=== PATIENT | female | born 1935 | race Caucasian/White ===

== ENCOUNTER 2017-06-09 08:26 | Outpatient (CLI) | payer MEDICARE, BC ==
[2017-06-09 11:21] LABS: ALT (SGPT) 20 U/L (8-55); AST (SGOT) 20 U/L (5-34); Alkaline Phosphatase 92 U/L (40-150); Anion Gap 13 mmol/L (10-20); BUN (Urea Nitrogen) 16 mg/dL (9.8-20.1); Bilirubin, Total 0.4 mg/dL (0.2-1.2); Calc. Creatinine Clearance 0 mL/min (70-130); Calcium 10.3 mg/dL (7.8-10.44); Carbon Dioxide 24 mmol/L (23-31); Chloride 105 mmol/L (98-107); Estimated GFR-MDRD 63; Protein, Total 7.2 g/dL (6.0-8.3)
[2017-06-09 11:25] LABS: Hematocrit 43.8 % (36.0-47.0); Mean Platelet Volume 8.4 fL (7.4-10.4); Red Blood Cell (RBC) Count 4.57 mill/uL (4.20-5.40); White Blood Cell (WBC) Count 7.7 thou/uL (4.8-10.8)
[2017-06-09 11:26] LABS: PTT 33.8 SEC (22.9-36.1); Prothrombin Time 17.1 SEC (12.0-14.7)
--- NOTE | 2017-06-09 12:31 | RAD ---
TWO VIEW CHEST: CLINICAL HISTORY: Preprocedural radiograph. COMPARISON: 01/18/2013 FINDINGS: There is a stable high density nodule in the right lung apex and at the left lung base, indicating gr anulomatous calcifications. The lungs are hyperinflated. The cardiac silhouette is mildly enlarged. There is vascular calcification and osseous degenerative change. IMPRESSION: Stable chest. POS: [facility]
--- NOTE | 2017-06-25 13:26 | EKG ---
Test Reason : Blood Pressure : / mmHG Vent. Rate : 081 BPM Atrial Rate : 081 BPM P-R Int : 144 ms QRS Dur : 104 ms QT Int : 394 ms P-R-T Axes : 070 -30 038 degrees QTc Int : 457 ms Sinus rhythm with occasional Premature ventricular complexes Left axis deviation Cannot rule out Anterior infarct (cited on or before 14-DEC-2012) Abnormal ECG Confirmed by JASON CARRASCO, MALENA ([id number]) on 06/25/2017 1:26:04 PM Referred By: JASON Confirmed By:MALENA GOMEZ MD
== END 2017-06-09 08:27 | disposition home or self-care (01) ==
LOC: LABBT 08:26
PROVIDERS: ATTEND Internal Medicine Cardiovascular Disease
DX: Z01.818 Encounter for other preprocedural examination (principal); R93.1 Abnormal findings on diagnostic imaging of heart and coronary circulation
CPT/HCPCS: 71020; 80053; 85027; 85610; 85730; 93005; 93010

== ENCOUNTER → 2017-06-15 | Day surgery (SDC) | payer MEDICARE, BC ==
[2017-06-09 09:12] VITALS: BMI 31.0
[~2017-06-15] MED LIST: Acetaminophen/Codeine 30-300mg Tablet ONE; Acetaminophen/Codeine 30-300mg Tablet PO PRN; DC ENOXAPARIN NIGHT BEFORE CATH FS SCH; Diazepam 5 MG TAB ONE; Diazepam 5 MG TAB PO SCH; Fentanyl 100 MCG/2 ML VIAL ONE; HOLD HYPOGLYCEMIC MEDS AM OF CATH FS SCH; Heparin 10,000 UNITS/1 ML VIAL ONE; Heparin 1000 UNIT/NS 500ML(OR) 1,000 ML ONE; Heparin 1000 UNIT/NS 500ML(OR) 500 ML ONE; Iopamidol 370 76% 100 ML VIAL ONE; Midazolam HCl 2 mg/2 ml Vial ONE; Nitroglycerin 0.4 MG TAB (25 Tab Bottle) SL PRN; Nitroglycerin 100MG/250ML BOT 250 ML ONE; Sodium Chloride 0.9% 1,000 ML IV SCH; Verapamil 5 MG/2 ML VIAL ONE; traMADol HCl 50 MG TAB ONE; traMADol HCl 50 MG TAB PO PRN
== END ==
LOC: CCL 05:39
PROVIDERS: ATTEND Internal Medicine Cardiovascular Disease
DX: R07.89 Other chest pain (principal); I10 Essential (primary) hypertension; E78.00 Pure hypercholesterolemia, unspecified; Z82.49 Family history of ischemic heart disease and other diseases of the circulatory system; Z79.01 Long term (current) use of anticoagulants; Z79.52 Long term (current) use of systemic steroids; Z79.899 Other long term (current) drug therapy; Z88.2 Allergy status to sulfonamides; Z91.041 Radiographic dye allergy status; Z90.710 Acquired absence of both cervix and uterus; Z90.49 Acquired absence of other specified parts of digestive tract; Z98.890 Other specified postprocedural states
CPT/HCPCS: 76942; 85347 ×2; 93458; C1769; 99152; J1644; J2250; J3010

== ENCOUNTER 2017-09-01 12:16 | Outpatient (CLI) | payer MEDICARE, BC | END 2017-09-01 12:17 | disposition home or self-care (01) | LOC: BICMAMMO 12:16 | PROVIDERS: ATTEND Internal Medicine | DX: Z12.31 Encounter for screening mammogram for malignant neoplasm of breast (principal); R92.1 Mammographic calcification found on diagnostic imaging of breast | CPT/HCPCS: 77063; 77067 ==

== ENCOUNTER 2017-11-06 08:19 | Emergency (ER) | payer MEDICARE, BC ==
[2017-11-06] MEDS ORDERED: Fluorescein Opthalmic Strip ONE (09:27)
[2017-11-06] MEDS ORDERED: Proparacaine 0.5% Opth 15 ML BOT ONE (09:27)
== END 2017-11-06 11:05 | disposition home or self-care (01) ==
LOC: ERS 08:19
DX: H20.9 Unspecified iridocyclitis (principal); I10 Essential (primary) hypertension; Z86.718 Personal history of other venous thrombosis and embolism; K21.9 Gastro-esophageal reflux disease without esophagitis; Z86.711 Personal history of pulmonary embolism; Z79.899 Other long term (current) drug therapy; Z79.01 Long term (current) use of anticoagulants
CPT/HCPCS: 99283

== ENCOUNTER 2018-07-19 14:52 | Outpatient (CLI) | payer MEDICARE, BC ==
--- NOTE | 2018-07-19 17:11 | MRI ---
BRAIN MRI NONCONTRAST: Date: 07/19/18 INDICATION: Coarse tremors. FINDINGS: Ventricular system is age-appropriate in size. There is no acute territorial infarction, mass effect, or midline shift. There is mild to moderate chronic ischemic disease involving the cerebral white ma tter. Global atrophy is present. There is bilateral mastoid fluid, left greater than right. The nativ e intraocular lenses are absent. Visualized skull base flow-voids are patent. No hemorrhagic suscepti bility is seen within the brain parenchyma. IMPRESSION: 1. No acute intracranial abnormalities. 2. Mild to moderate chronic ischemic disease and global atrophy. 3. Bilateral mastoid fluid, left greater than right. Correlate clinically. POS: [facility]
== END 2018-07-19 14:53 | disposition home or self-care (01) ==
LOC: BICMRI 14:52
PROVIDERS: ATTEND Family Medicine
DX: G25.2 Other specified forms of tremor (principal); I67.82 Cerebral ischemia
CPT/HCPCS: 70551

== ENCOUNTER 2018-11-09 10:13 | Outpatient (CLI) | payer MEDICARE, BC ==
--- NOTE | 2018-11-09 11:08 | MMO ---
Bilateral MAMMO Bilat Screen [facility]. CLINICAL HISTORY: Patient is 83 years old and is seen for screening. The patient has no family history of breast cancer. The patient has no personal history of cancer. VIEWS: The views performed were: bilateral craniocaudal with tomosynthesis and bilateral mediolateral oblique with tomosynthesis. FILMS COMPARED: The present examination has been compared to prior imaging studies performed at [facility] on 02/06/2013, 02/07/2014, 02/12/2015, 02/16/2016 and 09/01/2017. MAMMOGRAM FINDINGS: There are scattered fibroglandular densities. There are stable benign appearing calcifications seen in both breasts. There are no suspicious masses, suspicious calcifications, or new areas of architectural distortion. IMPRESSION: THERE IS NO MAMMOGRAPHIC EVIDENCE OF MALIGNANCY. A ROUTINE FOLLOW-UP MAMMOGRAM IN 1 YEAR IS RECOMMENDED. THE RESULTS OF THIS EXAM WERE SENT TO THE PATIENT. ACR BI-RADS Category 2 - Benign finding MAMMOGRAPHY NOTE: 1. A negative mammogram report should not delay a biopsy if a dominant of clinically suspicious mass is present. 2. Approximately 10% to 15% of breast cancers are not detected by mammography. 3. Adenosis and dense breasts may obscure an underlying neoplasm.
== END 2018-11-09 10:14 | disposition home or self-care (01) ==
LOC: BICMAMMO 10:13
PROVIDERS: ATTEND Family Medicine
DX: Z12.31 Encounter for screening mammogram for malignant neoplasm of breast (principal)
CPT/HCPCS: 77063; 77067

== ENCOUNTER 2020-03-26 15:14 | Outpatient (CLI) | payer MEDICARE, BC ==
--- NOTE | 2020-03-26 16:15 | RAD ---
EXAM: Chest PA and lateral: HISTORY: Postural kyphosis. Patient fell a couple months ago. COMPARISON: 06/09/2017 FINDINGS: Heart: Normal cardiac silhouette Aorta: Unremarkable Pulmonary vessels: Normal Costophrenic angles: Costophrenic angles are clear. Lungs: Hyperinflation with chronic changes. Stable calcified granuloma in the right upper lobe. Pneumothorax: No pneumothorax Osseous structures: No acute osseous abnormalities. Stable kyphosis. IMPRESSION: No acute cardiopulmonary process.
--- NOTE | 2020-03-26 16:53 | MMO ---
Bilateral MAMMO Bilat Screen [facility]. CLINICAL HISTORY: Patient is 84 years old and is seen for screening. The patient has no family history of breast cancer. The patient has no personal history of cancer. VIEWS: The views performed were: bilateral craniocaudal with tomosynthesis and bilateral mediolateral oblique with tomosynthesis. FILMS COMPARED: The present examination has been compared to prior imaging studies performed at [facility] on 02/12/2015, 02/16/2016, 09/01/2017 and 11/09/2018. This study has been interpreted with the assistance of computer-aided detection. MAMMOGRAM FINDINGS: There are scattered fibroglandular densities. There are no suspicious masses, suspicious calcifications, or new areas of architectural distortion. IMPRESSION: THERE IS NO MAMMOGRAPHIC EVIDENCE OF MALIGNANCY. A ROUTINE FOLLOW-UP MAMMOGRAM IN 1 YEAR IS RECOMMENDED. THE RESULTS OF THIS EXAM WERE SENT TO THE PATIENT. ACR BI-RADS Category 1 - Negative MAMMOGRAPHY NOTE: 1. A negative mammogram report should not delay a biopsy if a dominant of clinically suspicious mass is present. 2. Approximately 10% to 15% of breast cancers are not detected by mammography. 3. Adenosis and dense breasts may obscure an underlying neoplasm. Reported by: MARY ROME MD Electonically Signed: [id number]
--- NOTE | 2020-03-26 17:50 | BD ---
Exam: DEXA Bone Density 03/26/20 INDICATION: Age related osteoporosis. COMPARISON: None. FINDINGS: Lumbar Spine: BMD (g/cm2) T-SCORE Z-SCORE L1 0.819 -1.6 0.9 L2 0.902 -1.1 1.6 L3 1.130 0.4 3.3 L4 1.045 -0.1 2.9 L1-L4 0.983 -0.6 2.2 Left Femoral Neck: 0.673 -1.6 0.9 Left Total Femur: 0.785 -1.3 1.0 The WHO fracture risk assessment tool estimates a ten year fracture risk for this patient for a major osteoporotic fracture as 24% and for hip fracture 6.3%. Impression: Based on WHO criteria, the patient is osteopenic. The patient is at moderate risk for fracture. POS: [facility]
== END 2020-03-26 15:15 | disposition home or self-care (01) ==
LOC: BICMAMMO 15:14
PROVIDERS: ATTEND Family Medicine
DX: Z12.31 Encounter for screening mammogram for malignant neoplasm of breast (principal); M81.0 Age-related osteoporosis without current pathological fracture; M40.04 Postural kyphosis, thoracic region; M85.89 Other specified disorders of bone density and structure, multiple sites
CPT/HCPCS: 71046; 77063; 77067; 77080

== ENCOUNTER 2020-08-19 17:22 | Outpatient (CLI) | payer MEDICARE, BC ==
[2020-08-20 05:21] LABS: SARS-CoV-2 PCR by NAA Not Detected (NotDetected)
== END 2020-08-19 17:23 | disposition home or self-care (01) ==
LOC: LABBT 17:22
PROVIDERS: ATTEND Specialist
DX: Z01.818 Encounter for other preprocedural examination (principal); Z01.812 Encounter for preprocedural laboratory examination; L92.9 Granulomatous disorder of the skin and subcutaneous tissue, unspecified; Z20.822 Contact with and (suspected) exposure to COVID-19
CPT/HCPCS: U0003; U0005; 87635

== ENCOUNTER 2020-08-21 06:33 | Day surgery (SDC) | payer MEDICARE, BC ==
[2020-08-12 16:10] VITALS: BMI 32.5
[2020-08-21 08:02] LABS: Hemoglobin 13.8 g/dL (12.0-16.0)
[2020-08-21 08:15] LABS: Anion Gap 11 mmol/L (10-20); BUN (Urea Nitrogen) 19 mg/dL (9.8-20.1); Calc. Creatinine Clearance 53 mL/min (70-130); Calcium 9.2 mg/dL (7.8-10.44); Carbon Dioxide 28 mmol/L (23-31); Chloride 106 mmol/L (98-107); Glucose 105 mg/dL (83-110); Potassium 4.4 mmol/L (3.5-5.1); Sodium 141 mmol/L (136-145)
[2020-08-21] MEDS ORDERED: Ciprofloxacin 0.2% Otic (0.25ML CONTAINER) ONE (09:16)
[2020-08-21] MEDS ORDERED: Fentanyl 100 MCG/2 ML VIAL ONE (10:03)
[2020-08-21] MEDS ORDERED: PROPOFOL 20 ML ONE (10:43)
[2020-08-21] MEDS ORDERED: Ondansetron PF 4 MG/2 ML Vial ONE (10:43)
--- NOTE | 2020-08-21 11:29 | OP ---
DATE OF PROCEDURE: 08/21/2020 PREOPERATIVE DIAGNOSES: 1. Retained pressure equalization tubes. 2. Chronic otitis media with otorrhea. POSTOPERATIVE DIAGNOSES: 1. Retained pressure equalization tubes. 2. Chronic otitis media with otorrhea. PROCEDURE PERFORMED: Removal of retained tubes with paper patch tympanoplasty. DESCRIPTION OF PROCEDURE: After consent was obtained, the patient was identified and brought to the operating room and placed on the operating table in supine position. General endotracheal anesthesia was obtained. The patient was positioned in surgery for mask anesthesia. The external canals were cleared of obstructive cerumen and the eardrums were visualized and there was bloody granulation tissue which was removed, under which there was a retained tube. The tube was removed and topical Andrea-Synephrine was placed to facilitate vasoconstriction. We then were able to place a paper patch over the defect and turned our attention to the contralateral side. Findings were encountered and similar technique was performed. The patient was then awakened, extubated, and taken to recovery room in a stable condition prior to discharge home. Job ID: [id number]
--- NOTE | 2020-08-21 21:03 | EKG ---
Test Reason : PREOP Blood Pressure : / mmHG Vent. Rate : 076 BPM Atrial Rate : 076 BPM P-R Int : 154 ms QRS Dur : 108 ms QT Int : 396 ms P-R-T Axes : 080 -30 067 degrees QTc Int : 445 ms Normal sinus rhythm Left axis deviation Abnormal ECG Confirmed by Sosa LAURENT ([id number]) on 08/21/2020 9:03:27 PM Referred By: KANWAL Confirmed By:Sosa LAURENT
== END 2020-08-21 11:30 | disposition home or self-care (01) ==
LOC: SDC 06:33
PROVIDERS: ATTEND Specialist
PROC: 09U87JZ Supplement Left Tympanic Membrane with Synthetic Substitute, Via Natural or Artificial Opening (ICD-10-PCS; principal; 2020-08-21)
PROC: 09U77JZ Supplement Right Tympanic Membrane with Synthetic Substitute, Via Natural or Artificial Opening (ICD-10-PCS; 2020-08-21)
PROC: 09P870Z Removal of Drainage Device from Left Tympanic Membrane, Via Natural or Artificial Opening (ICD-10-PCS; 2020-08-21)
PROC: 09P770Z Removal of Drainage Device from Right Tympanic Membrane, Via Natural or Artificial Opening (ICD-10-PCS; 2020-08-21)
DX: H66.93 Otitis media, unspecified, bilateral (principal); T16.1XXA Foreign body in right ear, initial encounter; T16.2XXA Foreign body in left ear, initial encounter; H71.93 Unspecified cholesteatoma, bilateral; I10 Essential (primary) hypertension; Z86.711 Personal history of pulmonary embolism; Z79.01 Long term (current) use of anticoagulants; Z79.899 Other long term (current) drug therapy; Z88.2 Allergy status to sulfonamides; Z88.6 Allergy status to analgesic agent; Z91.041 Radiographic dye allergy status
CPT/HCPCS: 80048; 85014; 85018; 93005; 93010; J2405; J2704; J3010

== ENCOUNTER 2021-02-01 11:30 | Inpatient (IN) | payer MEDICARE, BC ==
[2021-02-01] MEDS ORDERED: Morphine 4 MG/ML VIAL ONE (12:36)
[2021-02-01] MEDS ORDERED: Ondansetron PF 4 MG/2 ML Vial ONE (12:36)
[2021-02-01 13:29] LABS: #Eosinphils 0.2 thou/uL (0.0-0.7); #Lymphocytes 1.4 thou/uL (1.20-3.40); #Monocytes 0.4 thou/uL (0.11-0.59); #Neutrophils 6.6 thou/uL (1.40-6.50); %Basophils 0.3 % (0.0-1.0); %Eosinophils 2.1 % (0.0-10.0); %Lymphocytes 16.2 % (21.0-51.0); %Monocytes 4.1 % (0.0-10.0); %Neutrophils 77.3 % (42.0-75.0); Mean Corpuscular HGB CONC 33.3 g/dL (32.0-36.0); Mean Corpuscular Hemoglobin 32.1 pg (27.0-31.0); Mean Corpuscular Volume 96.4 fL (78.0-98.0); Mean Platelet Volume 8.1 fL (7.4-10.4); Platelet Count 246 thou/uL (130-400); Red Blood Cell (RBC) Count 4.37 mill/uL (4.20-5.40); White Blood Cell (WBC) Count 8.6 thou/uL (4.8-10.8)
[2021-02-01] MEDS ORDERED: hydrALAZINE 20 MG/ML VIAL SLOW IVP PRN (13:29)
[2021-02-01] MEDS ORDERED: Ondansetron ODT 4 MG TAB PO PRN (13:29)
[2021-02-01] MEDS ORDERED: Dextrose 5% in Water 1,000 ML IV PRN (13:29)
[2021-02-01] MEDS ORDERED: Morphine 2 MG/ML VIAL SLOW IVP PRN (13:29)
[2021-02-01] MEDS ORDERED: Dextrose 50% Abboject 50 ML SYRINGE SLOW IVP PRN (13:29)
[2021-02-01] MEDS ORDERED: Cyclobenzaprine 10 MG TAB PO PRN (13:34)
[2021-02-01] MEDS ORDERED: traMADol HCl 50 MG TAB PO PRN (13:34)
[2021-02-01] MEDS ORDERED: CEFAZOLIN 1 GM VIAL ONE (13:45)
[2021-02-01 14:02] LABS: INR-International Normal Ratio 1.6; PTT 36.3 sec (22.9-36.1); Prothrombin Time 19.3 sec (12.0-14.7)
[2021-02-01 14:05] LABS: ALT (SGPT) 15 U/L (8-55); AST (SGOT) 19 U/L (5-34); Albumin 4.2 g/dL (3.4-4.8); Alkaline Phosphatase 94 U/L (40-110); Anion Gap 15 mmol/L (10-20); BUN (Urea Nitrogen) 19 mg/dL (9.8-20.1); Bilirubin, Total 0.3 mg/dL (0.2-1.2); Calc. Creatinine Clearance 0 mL/min (70-130); Calcium 9.5 mg/dL (7.8-10.44); Carbon Dioxide 24 mmol/L (23-31); Chloride 105 mmol/L (98-107); Globulin 3.1 g/dL (2.4-3.5); Glucose 135 mg/dL (83-110); Potassium 4.5 mmol/L (3.5-5.1); Protein, Total 7.3 g/dL (5.8-8.1); Sodium 139 mmol/L (136-145)
[2021-02-01 14:11] LABS: Phosphorus 3.6 mg/dL (2.3-4.7)
[2021-02-01] MEDS ORDERED: Ibuprofen 800 MG TAB PO PRN (14:22)
[2021-02-01 16:33] VITALS: BMI 32.5
[2021-02-01] MEDS: Gabapentin 300 MG CAP PO SCH ×2 (17:46→21:01)
[2021-02-01] MEDS: traMADol HCl 50 MG TAB PO SCH (17:51)
[2021-02-01] MEDS: Senokot S 8.6-50 MG TAB PO SCH (21:01)
[2021-02-01] MEDS: Famotidine 20 MG TAB PO SCH (21:02)
[2021-02-01] MEDS ORDERED: Sodium Chloride 0.9% 1,000 ML IV SCH (23:55)
[2021-02-02] MEDS: traMADol HCl 50 MG TAB PO SCH ×5 (00:24→23:56)
[2021-02-02] MEDS: Ondansetron PF 4 MG/2 ML Vial IVP PRN ×2 (03:48→16:10)
[2021-02-02 05:17] LABS: #Eosinphils 0.1 thou/uL (0.0-0.7); #Lymphocytes 1.8 thou/uL (1.20-3.40); #Monocytes 0.8 thou/uL (0.11-0.59); #Neutrophils 7.5 thou/uL (1.40-6.50); %Basophils 0.5 % (0.0-1.0); %Eosinophils 0.8 % (0.0-10.0); %Monocytes 7.8 % (0.0-10.0); Hemoglobin 11.4 g/dL (12.0-16.0); Mean Corpuscular HGB CONC 32.8 g/dL (32.0-36.0); Mean Corpuscular Hemoglobin 31.8 pg (27.0-31.0); Mean Corpuscular Volume 96.7 fL (78.0-98.0); Mean Platelet Volume 8.2 fL (7.4-10.4); Platelet Count 199 thou/uL (130-400); RBC Distribution Width 11.9 % (11.5-14.5); White Blood Cell (WBC) Count 10.2 thou/uL (4.8-10.8)
[2021-02-02 05:33] LABS: Anion Gap 10 mmol/L (10-20); BUN (Urea Nitrogen) 18 mg/dL (9.8-20.1); Calc. Creatinine Clearance 66 mL/min (70-130); Calcium 8.4 mg/dL (7.8-10.44); Carbon Dioxide 24 mmol/L (23-31); Chloride 106 mmol/L (98-107); Glucose 118 mg/dL (83-110); Magnesium 1.9 mg/dL (1.6-2.6); Phosphorus 3.2 mg/dL (2.3-4.7); Potassium 3.9 mmol/L (3.5-5.1); Sodium 136 mmol/L (136-145)
[2021-02-02 06:20] LABS: SARS-CoV-2 NAA Rapid Test Not Detected (NotDetected)
[2021-02-02] MEDS: Famotidine 20 MG TAB PO SCH ×2 (09:07→20:37)
[2021-02-02] MEDS: Polyethylene Glycol 3350 17 GM Packet PO SCH (09:09)
[2021-02-02] MEDS: Senokot S 8.6-50 MG TAB PO SCH ×2 (09:09→20:36)
[2021-02-02] MEDS: Gabapentin 300 MG CAP PO SCH (09:10)
[2021-02-02] MEDS ORDERED: Fentanyl 100 MCG/2 ML VIAL ONE ×2 (12:20→13:20)
[2021-02-02] MEDS ORDERED: Neomycin-Polymyxin 1 ML AMP ONE (12:33)
[2021-02-02] MEDS ORDERED: ePHEDrine 50 MG/ML VIAL ONE (13:23)
[2021-02-02] MEDS ORDERED: PROPOFOL 200 MG/20 ML VIAL ONE (13:23)
[2021-02-02] MEDS ORDERED: Bupivacaine HCl 0.5%/Epinephrine 1:200,000/PF 30 ml Vial ONE (13:23)
[2021-02-02] MEDS ORDERED: PHENYLEPHRINE-NS 100 MCG/ML 10 ML SYRINGE ONE (13:23)
[2021-02-02] MEDS ORDERED: Succinylcholine 200 MG/10 ml SYRINGE FS ONE (13:23)
[2021-02-02] MEDS ORDERED: Ondansetron PF 4 MG/2 ML Vial ONE (13:23)
[2021-02-02] MEDS ORDERED: Dexamethasone 20 MG/5 ML VIAL ONE (13:23)
[2021-02-02] MEDS ORDERED: Lidocaine 1% PF 5 ML VIAL ONE (13:23)
[2021-02-02] MEDS ORDERED: ePHEDrine Sulfate 50 MG/10 ML VIAL ONE (13:46)
[2021-02-02] MEDS ORDERED: Tranexamic Acid 1,000 MG/10 ML VIAL ONE (14:03)
[2021-02-02] MEDS ORDERED: HYDROcodone/Acetaminophen 10/325 mg Tablet PO PRN ×2 (14:59)
[2021-02-02] MEDS: Dextrose 5 %-0.45 % NaCl 1,000 ML IV SCH (16:10)
[2021-02-02] MEDS: Gabapentin 100 MG CAP PO SCH ×2 (16:14→20:36)
[2021-02-02] MEDS: CEFAZOLIN 2 GM in Premix Bag 1 BAG IVPB SCH (20:36)
[2021-02-03] MEDS: traMADol HCl 50 MG TAB PO SCH ×3 (05:20→18:00)
[2021-02-03] MEDS: Dextrose 5 %-0.45 % NaCl 1,000 ML IV SCH ×2 (05:21→20:58)
[2021-02-03] MEDS: CEFAZOLIN 2 GM in Premix Bag 1 BAG IVPB SCH (05:21)
[2021-02-03] MEDS: Ondansetron PF 4 MG/2 ML Vial IVP PRN (06:46)
[2021-02-03] MEDS: Senokot S 8.6-50 MG TAB PO SCH ×2 (10:17→20:57)
[2021-02-03] MEDS: Gabapentin 100 MG CAP PO SCH ×3 (10:17→20:57)
[2021-02-03] MEDS: Famotidine 20 MG TAB PO SCH ×2 (10:17→20:57)
[2021-02-03] MEDS: Polyethylene Glycol 3350 17 GM Packet PO SCH (10:18)
[2021-02-03] MEDS: Acetaminophen 325 MG TAB PO SCH ×2 (10:19→17:11)
[2021-02-03] MEDS ORDERED: Propranolol HCl LA 60 MG CAP PO SCH ×2 (11:15→13:15)
[2021-02-03] MEDS ORDERED: Ibuprofen 200 MG TAB PO PRN (11:15)
[2021-02-03] MEDS ORDERED: Lisinopril 10 MG TAB PO SCH (11:15)
[2021-02-03] MEDS ORDERED: Propranolol 60 MG TAB PO SCH (12:58)
[2021-02-04] MEDS: Acetaminophen 325 MG TAB PO SCH ×3 (00:24→11:04)
[2021-02-04] MEDS: traMADol HCl 50 MG TAB PO SCH ×3 (00:25→12:45)
[2021-02-04] MEDS: Gabapentin 100 MG CAP PO SCH ×2 (08:32→15:49)
[2021-02-04] MEDS: Famotidine 20 MG TAB PO SCH (08:32)
[2021-02-04] MEDS ORDERED: Lisinopril 10 MG TAB PO SCH ×2 (09:00)
[2021-02-04] MEDS ORDERED: Enoxaparin Sodium 40 MG/0.4 ML SYRINGE SC SCH (09:00)
[2021-02-04] MEDS ORDERED: Propranolol HCl LA 60 MG CAP PO SCH ×2 (09:00)
[2021-02-04] MEDS: Polyethylene Glycol 3350 17 GM Packet PO SCH (10:17)
[2021-02-04] MEDS: Senokot S 8.6-50 MG TAB PO SCH (10:17)
[2021-02-04] MEDS: Dextrose 5 %-0.45 % NaCl 1,000 ML IV SCH (12:46)
[2021-02-04 15:20] VITALS: BP 111/67; TEMP 98.1
== END 2021-02-04 15:55 | disposition home health service (06) | DRG 494 ==
LOC: ERS 11:30 → SURG B 13:29
PROVIDERS: ADMIT Surgery; ATTEND Surgery
PROC: 0PSD04Z Reposition Left Humeral Head with Internal Fixation Device, Open Approach (ICD-10-PCS; principal; 2021-02-02)
DX: S42.232A 3-part fracture of surgical neck of left humerus, initial encounter for closed fracture (principal); K21.9 Gastro-esophageal reflux disease without esophagitis; S51.012A Laceration without foreign body of left elbow, initial encounter; S42.252A Displaced fracture of greater tuberosity of left humerus, initial encounter for closed fracture; I10 Essential (primary) hypertension; Z20.822 Contact with and (suspected) exposure to COVID-19; W18.30XA Fall on same level, unspecified, initial encounter; Z86.718 Personal history of other venous thrombosis and embolism; Z79.01 Long term (current) use of anticoagulants; Z86.711 Personal history of pulmonary embolism; Z88.2 Allergy status to sulfonamides; Z91.041 Radiographic dye allergy status; Z90.49 Acquired absence of other specified parts of digestive tract; Z90.710 Acquired absence of both cervix and uterus; Z98.890 Other specified postprocedural states
CPT/HCPCS: 36415; 71045; 76000; 80048; 80053; 83735; 84100; 85025; 85610; 85730; 86850; 86900; 86901; 93005; 96365; 96375; C1713; G0390; J0690; J1100; J1650; J2270; J2405; J2704; J3010; J3490; U0002; U0005

== ENCOUNTER 2022-07-16 11:06 | Outpatient (CLI) | payer MEDICARE, BC | END 2022-07-16 11:07 | disposition home or self-care (01) | LOC: BICMAMMO 11:06 | PROVIDERS: ATTEND Family Medicine | DX: Z12.31 Encounter for screening mammogram for malignant neoplasm of breast (principal) | CPT/HCPCS: 77063; 77067 ==

== ENCOUNTER 2023-08-03 09:52 | Outpatient (CLI) | payer MEDICARE | END 2023-08-03 09:53 | disposition home or self-care (01) | LOC: BICMAMMO 09:52 | PROVIDERS: ATTEND Family Medicine | DX: Z12.31 Encounter for screening mammogram for malignant neoplasm of breast (principal); Z13.820 Encounter for screening for osteoporosis; N95.9 Unspecified menopausal and perimenopausal disorder; M85.89 Other specified disorders of bone density and structure, multiple sites | CPT/HCPCS: 77063; 77067; 77080 ==

== ENCOUNTER 2023-08-11 21:17 | Emergency (ER) | payer MEDICARE ==
[2023-08-11] MEDS ORDERED: traMADol HCl 50 MG TAB ONE (23:44)
== END 2023-08-12 00:40 | disposition home or self-care (01) ==
LOC: ERS 21:17
DX: S42.211A Unspecified displaced fracture of surgical neck of right humerus, initial encounter for closed fracture (principal); K21.9 Gastro-esophageal reflux disease without esophagitis; I10 Essential (primary) hypertension; Z86.711 Personal history of pulmonary embolism; W18.30XA Fall on same level, unspecified, initial encounter
CPT/HCPCS: 70450; 70486; 72125

== ENCOUNTER 2024-05-22 09:18 | Outpatient (CLI) | payer MEDICARE | END 2024-05-22 09:19 | disposition home or self-care (01) | LOC: BICRAD 09:18 | PROVIDERS: ATTEND Nurse Practitioner Family | DX: R05.1 Acute cough (principal); R06.02 Shortness of breath | CPT/HCPCS: 71046 ==